=== PATIENT | male | born 1970 | race Caucasian/White ===

== ENCOUNTER 2017-01-22 10:28 | Emergency (ER) | payer OTHER ==
[2017-01-22] MEDS ORDERED: SODIUM CHLORIDE 0.9% 1,000 ML IV STA (11:30)
[2017-01-22] MEDS ORDERED: KETOROLAC 30 MG/ML 1 ML VIAL IVP STA (11:30)
[2017-01-22] MEDS ORDERED: DICYCLOMINE 10 MG/ML 2 ML AMP IM STA (11:30)
[2017-01-22 11:45] LABS: Basophils # (A) 0.1 k/uL (0-0.2); Basophils % (A) 1 %; CH 32.6; CHCM 35.2; Eosinophils # (A) 0.3 k/uL (0-0.7); Eosinophils % (A) 3 %; HCT 48.1 % (39.0-53.0); HDW 2.51; HGB 16.3 gm/dL (13.0-17.5); Luc # (Auto) 0.17; Luc % (Auto) 2; Lymphocytes # (A) 3.7 k/uL (1.0-4.8); Lymphocytes % (A) 43 %; MCH 31.6 pg (25.0-35.0); Mean Platelet Volume 6.8; Monocytes # (A) 0.4 k/uL (0-1.0); Monocytes % (A) 5 %; Neutrophils % (A) 47 %; RBC 5.17 m/uL (4.30-5.90); RDW 13.1 % (11.5-15.5); WBC 8.6 k/uL (3.8-10.6); WBC (Perox) 8.17
[2017-01-22 11:56] LABS: ALT 26 U/L (21-72); AST 18 U/L (17-59); Alkaline Phosphatase 71 U/L (38-126); Amylase 48 U/L (30-110); Anion Gap 9 mmol/L; Blood Urea Nitrogen 16 mg/dL (9-20); Calcium 9.3 mg/dL (8.4-10.2); Carbon Dioxide 21 mmol/L (22-30); Chloride 111 mmol/L (98-107); Glucose 85 mg/dL (74-99); Magnesium 1.9 mg/dL (1.6-2.3); Non-African American GFR(MDRD) >60 (>60 ml/min/1.73 sqM); Phosphorous 3.3 mg/dL (2.5-4.5); Potassium 4.8 mmol/L (3.5-5.1); Sodium 141 mmol/L (137-145); Total Bilirubin 0.7 mg/dL (0.2-1.3); Total Protein 7.2 g/dL (6.3-8.2)
[2017-01-22 12:24] LABS: Creatine Kinase MB 0.6 ng/mL (0.0-2.4)
--- NOTE | 2017-01-22 12:39 | ED ---
General Adult HPI - General Chief complaint: Abdominal Pain Stated complaint: Abd Pain Time Seen by Provider: 01/22/17 10:48 Source: patient, RN notes reviewed, old records reviewed Mode of arrival: ambulatory Limitations: no limitations - History of Present Illness Initial comments: This is a 38-year-old male to the ER for evaluation. Patient presents here today for evaluation of abdominal pain. Patient has suffered from a history of constipation, no abdominal surgeries. Patient has tried her bowel regimens with sometimes with good success sometimes with no success. No difficulty with urination. No fevers. No nausea or vomiting. - Related Data Previous Rx's Medication Instructions Recorded Polyethylene Glycol 3350 [Miralax] 17 gm PO DAILY #255 gm 01/22/17 Allergies Allergy/AdvReac Type Severity Reaction Status Date / Time No Known Allergies Allergy Verified 01/22/17 11:11 Review of Systems ROS Statement: Those systems with pertinent positive or pertinent negative responses have been documented in the HPI. ROS Other: All systems not noted in ROS Statement are negative. Past Medical History Additional Past Medical History / Comment(s): back pain History of Any Multi-Drug Resistant Organisms: None Reported Additional Past Surgical History / Comment(s): epidural injections Past Psychological History: No Psychological Hx Reported Smoking Status: Current every day smoker Past Alcohol Use History: None Reported Past Drug Use History: None Reported General Exam Limitations: no limitations General appearance: alert, in no apparent distress Head exam: Present: atraumatic, normocephalic, normal inspection Eye exam: Present: normal appearance, PERRL, EOMI. Absent: scleral icterus, conjunctival injection, periorbital swelling ENT exam: Present: normal exam, mucous membranes moist Neck exam: Present: normal inspection. Absent: tenderness, meningismus, lymphadenopathy Respiratory exam: Present: normal lung sounds bilaterally. Absent: respiratory distress, wheezes, rales, rhonchi, stridor Cardiovascular Exam: Present: regular rate, normal rhythm, normal heart sounds. Absent: systolic murmur, diastolic murmur, rubs, gallop, clicks GI/Abdominal exam: Present: soft, normal bowel sounds. Absent: distended, tenderness, guarding, rebound, rigid Extremities exam: Present: normal inspection, full ROM, normal capillary refill. Absent: tenderness, pedal edema, joint swelling, calf tenderness Back exam: Present: normal inspection Neurological exam: Present: alert, oriented X3, CN II-XII intact Psychiatric exam: Present: normal affect, normal mood Skin exam: Present: warm, dry, intact, normal color. Absent: rash Course Vital Signs 01/22/17 01/22/17 10:41 13:17 Temperature 98.1 F 97.9 F Pulse Rate 80 69 Respiratory 20 16 Rate Blood Pressure 139/99 138/87 O2 Sat by Pulse 98 97 Oximetry Medical Decision Making - Medical Decision Making 38 male here with abdominal pain, generalized abdominal pain with no tenderness , patient has normal lab values, but on bowel regimen for constipation, patient can be discharged home - Lab Data Result diagrams: 01/22/17 11:25 01/22/17 11:25 Lab Results 01/22/17 01/22/17 01/22/17 Range/Units 11:25 11:25 11:25 WBC 8.6 (3.8-10.6) k/uL RBC 5.17 (4.30-5.90) m/uL Hgb 16.3 (13.0-17.5) gm/dL Hct 48.1 (39.0-53.0) % MCV 93.0 (80.0-100.0) fL MCH 31.6 (25.0-35.0) pg MCHC 34.0 (31.0-37.0) g/dL RDW 13.1 (11.5-15.5) % Plt Count 295 (150-450) k/uL Neutrophils % 47 % Lymphocytes % 43 % Monocytes % 5 % Eosinophils % 3 % Basophils % 1 % Neutrophils # 4.0 (1.3-7.7) k/uL Lymphocytes # 3.7 (1.0-4.8) k/uL Monocytes # 0.4 (0-1.0) k/uL Eosinophils # 0.3 (0-0.7) k/uL Basophils # 0.1 (0-0.2) k/uL Sodium 141 (137-145) mmol/L Potassium 4.8 (3.5-5.1) mmol/L Chloride 111 H (98-107) mmol/L Carbon Dioxide 21 L (22-30) mmol/L Anion Gap 9 mmol/L BUN 16 (9-20) mg/dL Creatinine 0.80 (0.66-1.25) mg/dL Est GFR (MDRD) Af Amer >60 (>60 ml/min/1.73 sqM) Est GFR (MDRD) Non-Af >60 (>60 ml/min/1.73 sqM) Glucose 85 (74-99) mg/dL Calcium 9.3 (8.4-10.2) mg/dL Phosphorus 3.3 (2.5-4.5) mg/dL Magnesium 1.9 (1.6-2.3) mg/dL Total Bilirubin 0.7 (0.2-1.3) mg/dL AST 18 (17-59) U/L ALT 26 (21-72) U/L Alkaline Phosphatase 71 (38-126) U/L Total Creatine Kinase 75 (55-170) U/L CK-MB (CK-2) 0.6 (0.0-2.4) ng/mL CK-MB (CK-2) Rel Index 0.8 Total Protein 7.2 (6.3-8.2) g/dL Albumin 4.3 (3.5-5.0) g/dL Amylase 48 (30-110) U/L Lipase 66 (23-300) U/L Disposition Clinical Impression: Abdominal pain, Constipation Disposition: HOME SELF-CARE Condition: Good Instructions: Constipation (ED), Abdominal Pain (ED) Prescriptions: Polyethylene Glycol 3350 [Miralax] 17 gm PO DAILY #255 gm Referrals: Guerrero Rivera DO [Primary Care Provider] - 1-2 days
[2017-01-22 13:20] VITALS: BP 138/87; PULSE 69; RESP 16; TEMP 97.9
== END 2017-01-22 13:19 | disposition home or self-care (01) ==
LOC: EC 10:28
DX: K59.00 Constipation, unspecified (principal); R10.9 Unspecified abdominal pain; F17.200 Nicotine dependence, unspecified, uncomplicated
CPT/HCPCS: 36415; 80053; 82150; 82550; 82553; 83690; 83735; 84100; 85025; 99284; 96374; 96361; 96372; J0500; J1885

== ENCOUNTER → 2017-04-12 | Day surgery (SDC) | payer OTHER ==
[2017-04-09 13:08] VITALS: BMI 27.2
[~2017-04-12] MED LIST: LACTATED RINGERS 1,000 ML IV SCH; LIDOCAINE 1% 20 ML VIAL (10MG/ML) FOR IV START INTRADERMA PRN; LIDOCAINE 1% INJ 10MG/ML (20 ML MDV) ONE; PROPOFOL 10 MG/ML 20 ML VIAL IV ONE
[2017-04-12 09:18] VITALS: RESP 16; TEMP 98.1
--- NOTE | 2017-04-12 10:04 | P.GSHP ---
History of Present Illness H&P Date: 04/12/17 Chief Complaint: GERD, epigastric pain, constipation This is a 46-year-old male presents today for EGD and colonoscopy. He's had complaints of epigastric abdominal pain, GERD and constipation. Patient states his previous history of peptic ulcer disease. Past Medical History Past Medical History: GERD/Reflux, Vascular Disorder Additional Past Medical History / Comment(s): back pain. HX STOMACH ULCERS. BLOATING, BOWEL PROBLEMS SINCE 10/2016, PER ; SOME SHORTNESS OF BREATH ALSO - BEGAN AFTER INPATIENT TREATMENT TO WEAN OFF FENTANYL PATCH. RAYNAUD'S. History of Any Multi-Drug Resistant Organisms: None Reported Additional Past Surgical History / Comment(s): epidural injections. EGD Past Anesthesia/Blood Transfusion Reactions: No Reported Reaction Smoking Status: Current some day smoker - Past Family History Mother Family Medical History: No Reported History Medications and Allergies Home Medications Medication Instructions Recorded Confirmed Type Antacid (Unknown Name Or Dose 1 tab PO DAILY PRN 04/09/17 04/12/17 History Ibuprofen [Motrin] 200 - 400 mg PO Q6HR PRN 04/09/17 04/12/17 History Allergies Allergy/AdvReac Type Severity Reaction Status Date / Time No Known Allergies Allergy Verified 04/12/17 09:18 Surgical - Exam Vital Signs Temp Pulse Resp BP Pulse Ox 98.1 F 72 16 144/91 99 04/12/17 09:17 04/12/17 09:17 04/12/17 09:17 04/12/17 09:17 04/12/17 09:17 - General well developed, no distress - Eyes PERRL - ENT normal pinna - Neck no masses - Respiratory normal expansion - Cardiovascular Rhythm: regular - Abdomen Abdomen: soft, non tender Assessment and Plan Plan: GERD, epigastric pain and constipation. We'll perform EGD and colonoscopy.
--- NOTE | 2017-04-12 10:20 | P.OP ---
Date of Procedure: 04/12/17 Preoperative Diagnosis: GERD Abdominal pain Constipation Postoperative Diagnosis: Antral gastritis Large hiatal hernia Mild esophagitis Procedure(s) Performed: EGD Colonoscopy Implants: Anesthesia: MAC Surgeon: Faustino Aguirre Pathology: other (Antrum, esophagus) Condition: stable Disposition: PACU Indications for Procedure: Operative Findings: Description of Procedure: The patient's placed on the endoscopy table in the lateral position. He received IV sedation. The gastroscope placed oropharynx and passed into the esophagus and stomach. Scope was then placed through the pylorus. The first second portion of the duodenum appeared normal. Scope was then brought back the antrum this was mildly inflamed. There is no evidence of any peptic ulcer disease. The scope was then retroflexed and the remainder stomach appeared normal. There was a large hiatal hernia. The GE junction was at 38 cm. The distal esophagus was minimal inflamed and a biopsies performed. The proximal esophagus appeared normal. The scope was withdrawn for patient. Next digital rectal exam was performed. There were a few external hemorrhoids. The flexible colonoscope was then placed patient anus passed throughout the entire colon. The ileocecal valve sutures. The cecum, ascending and transverse colon appeared normal. In the descending and; was a few scattered diverticula. Scope was then brought back the rectum and there was some inflammation of the rectum. Several mucosal biopsies performed. The scope was withdrawn from patient.
[2017-04-12 10:42] VITALS: BP 133/90; PULSE 62
--- NOTE | 2017-04-12 13:49 | NM ---
EXAMINATION TYPE: NM hepatobiliary w EF DATE OF EXAM: 04/12/2017 COMPARISON: NONE HISTORY: Abdominal pain TECHNIQUE: After the intravenous administration of 6 mCi Tc 99m Mebrofenin hepatobiliary scintigraphy is performed. Immediate images post injection. FINDINGS: There is satisfactory initial accumulation of tracer by the liver. The gallbladder is visualized wit hin 12 minutes. The small bowel activity is noted within 14 minutes. At one hour 8 ounces of oral e nsure plus is given to mimic CCK and gallbladder ejection fraction is calculated at 30 %, below isabel l. Therefore there is no scintigraphic evidence of cystic or common bile duct obstruction to suggest acute cholecystitis or gallbladder dyskinesia. IMPRESSION: BILIARY DYSKINESIA.
== END | disposition home or self-care (01) ==
LOC: ORWHC2ENDO 08:38
PROVIDERS: ATTEND Surgery
DX: K29.60 Other gastritis without bleeding (principal); K21.0 Gastro-esophageal reflux disease with esophagitis; K44.9 Diaphragmatic hernia without obstruction or gangrene; K64.4 Residual hemorrhoidal skin tags; K57.30 Diverticulosis of large intestine without perforation or abscess without bleeding; F17.200 Nicotine dependence, unspecified, uncomplicated; I73.00 Raynaud's syndrome without gangrene
CPT/HCPCS: 88305; 88342; 78226; 45380; 43239; A9537; J2001; J2704

== ENCOUNTER 2017-04-27 11:42 | Observation (INO) | payer OTHER ==
[2017-04-24 16:20] VITALS: BMI 27.2
[~2017-04-27 11:42] MED LIST changes: +DEXAMETHASONE SOD PHOSPHATE 10 MG/ML 1 ML VIAL IV ONE; +HEPARIN SODIUM,PORCINE 5,000 UNIT/ML 1 ML VIAL SQ ONE; -LACTATED RINGERS 1,000 ML IV SCH; -LIDOCAINE 1% 20 ML VIAL (10MG/ML) FOR IV START INTRADERMA PRN; -LIDOCAINE 1% INJ 10MG/ML (20 ML MDV) ONE; +MIDAZOLAM 2 MG/2 ML VIAL IV PRN; +ONDANSETRON 4 MG/2 ML VIAL IVP ONE; -PROPOFOL 10 MG/ML 20 ML VIAL IV ONE; +SCOPOLAMINE 1.5MG/72HR PATCH TRANSDERM ONE; +ceFAZolin 2 GM in SODIUM CHLORIDE 0.9% 100 ML IVPB ONE
[2017-04-27] MEDS ORDERED: LIDOCAINE 1% 20 ML VIAL (10MG/ML) FOR IV START INTRADERMA ONE (13:50)
[2017-04-27] MEDS: LACTATED RINGERS 1,000 ML IV SCH (13:50)
[2017-04-27 13:57] LABS: Basophils # (A) 0.1 k/uL (0-0.2); Basophils % (A) 1 %; CHCM 35.3; Eosinophils # (A) 0.4 k/uL (0-0.7); Eosinophils % (A) 4 %; HCT 50.4 % (39.0-53.0); HDW 2.55; Luc # (Auto) 0.18; Luc % (Auto) 2; Lymphocytes # (A) 4.1 k/uL (1.0-4.8); Lymphocytes % (A) 42 %; MCH 32.4 pg (25.0-35.0); MCHC 35.6 g/dL (31.0-37.0); MCV 90.8 fL (80.0-100.0); Mean Platelet Volume 6.9; Monocytes # (A) 0.4 k/uL (0-1.0); Monocytes % (A) 5 %; Neutrophils # (A) 4.4 k/uL (1.3-7.7); Neutrophils % (A) 46 %; RBC 5.55 m/uL (4.30-5.90); RDW 12.2 % (11.5-15.5); WBC 9.6 k/uL (3.8-10.6); WBC (Perox) 9.35
--- NOTE | 2017-04-27 15:00 | P.GSHP ---
History of Present Illness H&P Date: 04/27/17 Chief Complaint: GERD, right upper quadrant pain 's is a 38-year-old male 6 complaints of GERD.The patient has had long-standing problems with reflux esophagitis. The patient underwent recent EGD is found have evidence of esophagitis. Patient has been well informed on the procedure of laparoscopic Nelsy fundoplication. The patient is aware the risk of the conversion to the open procedure, risk of injury to the stomach, liver and spleen. The patient is also a risk of recurrent GERD and dysphagia symptoms. The patient understands there is a postoperative diet of full liquids for 2 weeks after surgery. Patient also had a recent complaints of right quadrant pain. His HIDA scan shows a diminished ejection fraction consistent with chronic cholecystitis. The patient was scheduled for laparoscopic cholecystectomy laparoscopic Nelsy fundoplication. - Constitutional Constitutional: Reports as per HPI Past Medical History Past Medical History: GERD/Reflux Additional Past Medical History / Comment(s): back pain. HX STOMACH ULCERS. BLOATING, BOWEL PROBLEMS SINCE 10/2016, PER ; SOME SHORTNESS OF BREATH ALSO from hiatal hernia, RAYNAUD'S. History of Any Multi-Drug Resistant Organisms: None Reported Additional Past Surgical History / Comment(s): epidural injections. EGD/ colonoscopy Past Anesthesia/Blood Transfusion Reactions: No Reported Reaction Smoking Status: Current some day smoker - Past Family History Mother Family Medical History: No Reported History Father Family Medical History: Deep Vein Thrombosis (DVT) Medications and Allergies Home Medications Medication Instructions Recorded Confirmed Type Ibuprofen [Motrin] 200 - 400 mg PO Q6HR PRN 04/09/17 04/27/17 History Omeprazole(Dose Unknown) 1 tab PO DAILY PRN 04/24/17 04/27/17 History Allergies Allergy/AdvReac Type Severity Reaction Status Date / Time No Known Allergies Allergy Verified 04/27/17 13:42 Surgical - Exam Vital Signs Temp Pulse Resp BP Pulse Ox 97.5 F L 61 18 126/89 92 L 04/27/17 13:40 04/27/17 13:40 04/27/17 13:40 04/27/17 13:40 04/27/17 13:40 - General well developed, no distress - Eyes PERRL - ENT normal pinna - Neck no masses - Respiratory normal expansion - Cardiovascular Rhythm: regular - Abdomen Abdomen: soft, non tender Results - Labs 04/27/17 13:50 Abnormal Lab Results - Last 24 Hours (Table) 04/27/17 Range/Units 13:50 Hgb 18.0 H (13.0-17.5) gm/dL Assessment and Plan Plan: GERD. We'll perform laparoscopic Nelsy fundal plication. Choledocholithiasis. We'll perform laparoscopic cholecystectomy.
[2017-04-27] MEDS ORDERED: ROCURONIUM BROMIDE 10 MG/ML 10 ML VIAL IV ONE (16:07)
[2017-04-27] MEDS ORDERED: NEOSTIGMINE 1 MG/ML 10 ML VIAL ONE (16:07)
[2017-04-27] MEDS ORDERED: GLYCOPYRROLATE 0.2 MG/ML 2 ML VIAL ONE (16:07)
[2017-04-27] MEDS ORDERED: PROPOFOL 10 MG/ML 20 ML VIAL IV ONE (16:07)
[2017-04-27] MEDS ORDERED: SUCCINYLCHOLINE CHLORIDE 100 MG/5 ML SYR IV ONE (16:07)
[2017-04-27] MEDS ORDERED: HYDROmorphone (PF) 1 MG/ML ONE (16:07)
[2017-04-27] MEDS ORDERED: LIDOCAINE 1% INJ 10MG/ML (20 ML MDV) ONE (16:07)
[2017-04-27] MEDS ORDERED: fentaNYL (PF) 50 MCG/ML 2 ML AMP ONE (16:07)
[2017-04-27] MEDS ORDERED: MIDAZOLAM 2 MG/2 ML VIAL ONE (16:07)
[2017-04-27] MEDS ORDERED: ESMOLOL 100 MG/10 ML VIAL ONE (16:07)
[2017-04-27] MEDS ORDERED: BUPIVACAINE (PF) 0.25% 30 ML VIAL SQ ONE (16:33)
[2017-04-27] MEDS ORDERED: LACTATED RINGERS 1,000 ML IV ONE ×2 (17:03)
[2017-04-27] MEDS ORDERED: ONDANSETRON 4 MG/2 ML VIAL IVP PRN (17:25)
--- NOTE | 2017-04-27 17:25 | P.OP ---
Date of Procedure: 04/27/17 Preoperative Diagnosis: GERD Cholecystitis Postoperative Diagnosis: GERD Cholecystitis Procedure(s) Performed: Laparoscopic Nelsy fundal plication Laparoscopic cholecystectomy Anesthesia: MAC Surgeon: Faustino Aguirre Estimated Blood Loss (ml): 10 Pathology: other (Gallbladder) Condition: stable Disposition: PACU Description of Procedure: The patient was placed on the operating table in the supine position. The patient received general anesthesia. And was placed in dorsal lithotomy position. The patient was prepped and draped in the usual sterile fashion. The skin incision sites were anesthetized with 1% local Xylocaine. The skin was incised in the left periumbilical area and then using a blade less 5 mm trocar under direct visualization panel cavity was entered. After adequate insufflation the laparoscope was then placed into the peritoneal cavity. Next a 5 mm trochars placed in the right epigastric position. Another 5 millimeter trocar the right lateral position. Another 5 millimeter trocar in the left lateral position a 5 mm trocar is placed in the left epigastric position. And then the initial 5 mm trocar was exchanged for a 10 mm trocar. The left lateral lobe liver was retracted. The hernia was seen. The crural defect was then dissected using the Harmonic scissors device. A 360 crural dissection was performed the esophagus stomach was reduced back into the peritoneal Cavity. The crural defect was then closed using 2-0 Ethibond suture. Next the fundus of the stomach was mobilized using the Couch scissors device. and then a 58-Wallisian bougie dilator was placed oropharynx passed into the esophagus and stomach the fundal plication wrap was then performed by grasping the fundus posteriorly and bringing it around the esophagus and stomach fundoplication was then performed using 2-0 Ethibond suture. Care was taken that the fundal location rested over top of the intra-abdominal esophagus. There was no injury seen to the stomach or esophagus. The dilator was then withdrawn. The abdomen was irrigated there is no bleeding seen. The patient's position in the reverse Trendelenburg right side up position. A 10 mm trocar was placed in the right mid axillary position. The liver retractor was withdrawn and the 8 mm trocar was placed in the epigastric position. A 5 mm trochars placed at the umbilicus. The gallbladder was visualized. The gallbladder was grasped and traction the gallbladder was placed on lateral and cephalad position. The cystic duct was visualized. The cystic duct was dissected and then a 2-0 Ethibond suture was placed around the cystic duct and ligated with the timeout device. The cystic duct was then transected using the Harmonic scissors. The cystic artery was then dissected using the Harmonic's. The gallbladder was then removed from the liver bed using the Harmonic scissors. The gallbladder was extracted through the 8 mm trocar site. Liver bed of April bleeding. There was several small vessels which were cauterized using left cautery. The liver bed was inspected for bleeding is no bleeding seen. The abdomen was irrigated. There is no bleeding seen. The trochars withdrawn. The skin was closed interrupted 3-0 Monocryl suture. Dermabond was applied.
[2017-04-27] MEDS: HYDROmorphone 1 MG/ML 1 ML SYRINGE IVP PRN ×3 (17:41→22:04)
[2017-04-27] MEDS ORDERED: hydrALAZINE HCL 20 MG/ML 1 ML VIAL IVP ONE ×2 (18:01→18:12)
[2017-04-27] MEDS: METOCLOPRAMIDE 5 MG/ML 2 ML VIAL IVP SCH (19:29)
[2017-04-27] MEDS: D5-0.45% NACL WITH KCL 20MEQ/L 1,000 ML IV SCH (19:31)
[2017-04-28] MEDS: METOCLOPRAMIDE 5 MG/ML 2 ML VIAL IVP SCH ×2 (01:01→06:29)
[2017-04-28] MEDS: HYDROmorphone 1 MG/ML 1 ML SYRINGE IVP PRN ×2 (03:14→07:05)
[2017-04-28] MEDS: D5-0.45% NACL WITH KCL 20MEQ/L 1,000 ML IV SCH ×2 (05:02→09:09)
[2017-04-28] MEDS: LACTATED RINGERS 1,000 ML IV SCH (06:29)
[2017-04-28 07:23] VITALS: BP 122/70; PULSE 70; RESP 16; TEMP 98.1
--- NOTE | 2017-04-28 08:35 | FL ---
EXAMINATION TYPE: FL esophagus cervic/pharynx DATE OF EXAM ORDERED: 04/28/2017 8:26 AM HISTORY: Postop Torrie fundoplication. COMPARISON: None. FINDINGS: The patient drank contrast with ease. The esophagus demonstrates some tertiary wave format ion. There is prompt egress of contrast from the esophagus into the stomach. The proximal small bowel is normal. IMPRESSION: STATUS POST TORRIE FUNDOPLICATION.
[2017-04-28] MEDS ORDERED: ENOXAPARIN 40 MG/0.4 ML SYRINGE SQ SCH (09:00)
--- NOTE | 2017-04-28 16:13 | P.DS ---
Providers Date of admission: 04/28/17 03:41 Expected date of discharge: 04/28/17 Attending physician: Faustino Aguirre Consults: 04/27/17 17:25 Consult Physician Routine Consulting Provider: Natalie Hernandez Consult Reason/Comments: Medical management Do you want consulting provider notified?: Yes Primary care physician: Guerrero Rivera - Discharge Diagnosis(es) (1) GERD (gastroesophageal reflux disease) Status: Acute (2) Biliary dyskinesia Status: Acute Hospital Course: Patient was taken the OR where he underwent laparoscopic cholecystectomy and laparoscopic Nelsy fundoplication. His esophagram was unremarkable. By postoperative day 1 he was tolerating clear liquids and having expected incisional pain. He is felt to be stable for discharge Patient Condition at Discharge: Good Plan - Discharge Summary New Discharge Prescriptions: New HYDROcodone/APAP 5-325MG [[place] 5-325] 1 - 2 tab PO Q4H PRN #30 tab PRN Reason: Pain No Action Ibuprofen [Motrin] 200 - 400 mg PO Q6HR PRN PRN Reason: Pain Omeprazole [PriLOSEC] 20 mg PO DAILY Discharge Medication List Ibuprofen [Motrin] 200 - 400 mg PO Q6HR PRN 04/09/17 [History] HYDROcodone/APAP 5-325MG [[place] 5-325] 1 - 2 tab PO Q4H PRN #30 tab 04/28/17 [Rx ] Omeprazole [PriLOSEC] 20 mg PO DAILY 04/28/17 [History] Follow up Appointment(s)/Referral(s): Faustino Aguirre MD [STAFF PHYSICIAN] - 1 Week Patient Instructions/Handouts: *Surgery [facility] - ([facility]) Lap Nelsy Fundiplication Post-Op Instructions, Laparoscopic Cholecystectomy (DC) Discharge Disposition: HOME SELF-CARE
--- NOTE | 2017-06-29 12:10 | P.CONS ---
History of Present Illness - Reason for Consult Consult date: 04/28/17 Medical management - Chief Complaint Abdominal pain - History of Present Illness Patient is a 44-year-old male with a known history of GERD for a long time. Patient admitted to the hospital with recent complaints of right upper quadrant pain. Patient had HIDA scan done showed diminished ejection fraction consistent with chronic cholecystitis. Patient underwent Jordy fundoplication and cholecystectomy. Otherwise patient is denied having any complaints of chest pain or shortness of breath. No fever no chills. Patient was started on liquid diet and is tolerating. Denied any recent illnesses. Review of Systems Constitutional: Patient denies any fever or chills . No generalized weakness or weight loss. Abdomen: Patient denied nausea vomiting and diarrhea and abdominal pain. Cardiovascular: Patient denies any chest pain or short of breath no palpitations. Respiratory: patient denied any cough is from production. No shortness of breath Neurologic: Patient denied any numbness or tingling headache. Musculoskeletal: Patient denies any complaints of joint swelling or deformity. Skin: Negative Psychiatric: Negative Endocrine: No heat or cold intolerance. No recent weight gain. Genitourinary: No dysuria or hematuria. All other 14 point ROS negative except the above Past Medical History Past Medical History: GERD/Reflux Additional Past Medical History / Comment(s): back pain. HX STOMACH ULCERS. BLOATING, BOWEL PROBLEMS SINCE 10/2016, PER ; SOME SHORTNESS OF BREATH ALSO from hiatal hernia, RAYNAUD'S. History of Any Multi-Drug Resistant Organisms: None Reported Past Surgical History: Cholecystectomy Additional Past Surgical History / Comment(s): epidural injections. EGD/ colonoscopy, jordy Past Anesthesia/Blood Transfusion Reactions: No Reported Reaction Past Psychological History: No Psychological Hx Reported Smoking Status: Current some day smoker Past Alcohol Use History: Rare Additional Past Alcohol Use History / Comment(s): smokes 1/2 PPD for over 20 yrs Past Drug Use History: None Reported - Past Family History Mother Family Medical History: No Reported History Father Family Medical History: Deep Vein Thrombosis (DVT) Medications and Allergies Home Medications Medication Instructions Recorded Confirmed Type Ibuprofen [Motrin] 200 - 400 mg PO Q6HR PRN 04/09/17 04/28/17 History HYDROcodone/APAP 5-325MG [[place] 1 - 2 tab PO Q4H PRN #30 tab 04/28/17 Rx 5-325] Omeprazole [PriLOSEC] 20 mg PO DAILY 04/28/17 04/28/17 History Allergies Allergy/AdvReac Type Severity Reaction Status Date / Time No Known Allergies Allergy Verified 04/28/17 10:21 Physical Exam Vitals: Vital Signs Temp Pulse Resp BP Pulse Ox 04/28/17 07:21 98.1 F 70 16 122/70 94 L 04/28/17 02:23 98.4 F 87 17 143/80 98 04/27/17 23:15 92 120/73 96 04/27/17 21:59 95 04/27/17 20:55 98.6 F 98 16 142/83 99 04/27/17 20:40 111 H 16 139/96 100 04/27/17 20:33 99 04/27/17 20:25 115 H 16 150/89 96 04/27/17 20:10 98.3 F 98 16 149/88 96 04/27/17 19:55 102 H 16 160/103 97 04/27/17 19:40 100 145/85 96 04/27/17 19:25 100 16 156/93 96 04/27/17 19:10 105 H 16 148/94 96 04/27/17 18:55 97 F L 110 H 17 149/88 96 04/27/17 18:16 154/74 04/27/17 18:08 90 16 173/99 96 04/27/17 18:06 80 18 163/98 95 04/27/17 17:45 72 16 167/99 96 04/27/17 17:30 98.1 F 100 16 111/90 96 04/27/17 13:40 97.5 F L 61 18 126/89 92 L Intake and Output 04/27/17 04/28/17 04/28/17 22:59 06:59 14:59 Intake Total 1450 Output Total 10 Balance 1440 Intake: IV 1450 Output: Estimated Blood Loss 10 Other: # Voids 2 3 # Bowel Movements 0 Weight 86.183 kg 86.183 kg Patient Weight 04/29/17 06:59 Weight 86.183 kg PHYSICAL EXAMINATION: Patient is lying in the bed comfortably, no acute distress, awake alert and oriented.. HEENT: Normocephalic. Neck is supple. Pupils reactive. Nostrils clear. Oral cavity is moist. Ears reveal no drainage. Neck reveals no JVD, carotid bruits, or thyromegaly. CHEST EXAMINATION: Trachea is central. Symmetrical expansion. Lung posada clear to auscultation and percussion. CARDIAC: Normal S1, S2 with no gallops. No murmurs ABDOMEN: Soft. Bowel sounds normal. No organomegaly. No abdominal bruits. Extremities: reveal no edema. No clubbing or cyanosis Neurologically awake, alert, oriented x3 with well-coordinated movements. No focal deficits noted Skin: No rash or skin lesions. Psychiatric: Operative. Nonsuicidal Musculoskeletal: No joint swelling or deformity. Normal range of motion. Results CBC & Chem 7: 04/27/17 13:50 Labs: Abnormal Lab Results - Last 24 Hours (Table) 04/27/17 Range/Units 13:50 Hgb 18.0 H (13.0-17.5) gm/dL Assessment and Plan Assessment: #1 long-standing symptoms of GERD and esophagitis. Status post Jordy fundoplication #2 chronic cholecystitis with a reduced ejection fraction biliary. Status post cholecystectomy DVT prophylaxis Plan: Patient will be continued on pain management with [place]. Advised to discontinue Motrin at home. Continue with advanced diet. DVT prophylaxis. Incentive spirometry. We'll continue to follow closely and further recommendations based on the clinical course. Thank you for your consult
== END 2017-04-28 13:16 | disposition home or self-care (01) ==
LOC: OR 11:42 → 3SUR 17:28 → OR 04-28 03:41 → 3SUR 04-28 03:41
PROVIDERS: ADMIT Surgery; ATTEND Surgery
DX: K21.0 Gastro-esophageal reflux disease with esophagitis (principal); K80.64 Calculus of gallbladder and bile duct with chronic cholecystitis without obstruction; F17.200 Nicotine dependence, unspecified, uncomplicated; K82.8 Other specified diseases of gallbladder; I73.00 Raynaud's syndrome without gangrene
CPT/HCPCS: 47562; 43280; 88304; 85025; 74210; G0378; J2250; J0360; J1644; J1100; J2710; J2765 ×2; Q9967; J0690; J2405; J2001; J1650; J3010; J1170 ×2; J0330; J2704

== ENCOUNTER → 2023-01-18 | Outpatient (CLI) | payer OTHER ==
--- NOTE | 2023-01-18 18:38 | XR ---
EXAMINATION TYPE: XR lumbosacral spine min 4V DATE OF EXAM: 01/18/2023 4:00 PM INDICATION: Patient age:Male; 52 years old; Reason for study: M54.50;. COMPARISON: None TECHNIQUE: Frontal, lateral , bilateral oblique and coned in L5-S1 lateral views of the spine. FINDINGS: No evidence of any acute osseous pathology. No evidence of loss of vertebral body height i s seen. There is normal alignment of the lumbar vertebral bodies. Mild scattered disc space narrowing . Multilevel marginal osteophyte formation throughout the visualized spine. There is facet joint arth ropathy throughout the spine. Scattered at least mild neural foraminal stenosis. IMPRESSION: 1. No acute fracture. 2. Moderate multilevel disc degeneration.
== END | disposition home or self-care (01) ==
LOC: RADXRMAIN 15:43
PROVIDERS: ATTEND Family Medicine
DX: M51.36 Other intervertebral disc degeneration, lumbar region (principal)
CPT/HCPCS: 72110